=== PATIENT | female | born 1980 | race Two or more races ===

== ENCOUNTER 2018-05-07 13:26 | Emergency (ER) | payer OTHER ==
[~2018-05-07] VITALS: Ht 160 cm; Wt 83.9 kg
[2018-05-07 13:33] VITALS: BP_SYST 141
--- NOTE | 2018-05-07 13:41 | NUR ---
Patient to ER bed 8 to gown for evaluation. Side rails up. Report given to Jonnie LOZANO.
--- NOTE | 2018-05-07 13:42 | NUR ---
Pt here for c/o frontal headache, dizziness, and high diastolic BP in the 90's per pt. Pt was taking Amlodipine for htn and just started Losartan this morning. Repirations even and unlabored, denied SOB. Will continue to monitor.
--- NOTE | 2018-05-07 13:45 | NUR ---
at bedside to assess pt.
[2018-05-07] MEDS ORDERED: KETOROLAC TROMETHAMINE 30 MG VIAL IVP ONE (14:15)
[2018-05-07] MEDS ORDERED: NACL 0.9% 1,000 ML IV ONE (14:15)
[2018-05-07 15:16] LABS: CREATININE 0.84 mg/dL (0.55-1.30); POTASSIUM 3.9 mmol/L (3.5-5.1)
[2018-05-07 15:22] LABS: ALBUMIN 3.8 g/dL (3.4-4.8); TOTAL BILIRUBIN 0.4 mg/dL (0.0-1.0)
[2018-05-07 15:28] LABS: CALCIUM 9.1 mg/dL (8.4-11.0)
[2018-05-07 15:46] LABS: BASOPHILS % (AUTO) 0.3 % (0.0-2.0); EOSINOPHILS # (AUTO) 0.1 K/uL (0.0-0.4); HEMATOCRIT 41.7 % (36-48); HEMOGLOBIN 13.5 g/dL (12.0-16.0); LYMPHOCYTES % (AUTO) 34.3 % (20.5-51.5); MEAN CORPUSCULAR HEMOGLOBIN 26 pg (27-31); MEAN CORPUSCULAR HGB CONC 32 % (32-36); MEAN CORPUSCULAR VOLUME 79 fL (79.0-98.0); MONOCYTES # (AUTO) 0.4 K/uL (0.0-1.0); MONOCYTES % (AUTO) 4.9 % (1.7-9.3); NEUTROPHILS # (AUTO) 5.2 K/uL (1.8-7.7); NEUTROPHILS % (AUTO) 59.5 % (40.0-70.0); PLATELET COUNT (AUTO) 270 K/uL (130-430); RED BLOOD CELL COUNT(AUTO) 5.27 MIL/uL (4.2-6.2); RED CELL DISTRIBUTION WIDTH 12.6 % (9.0-15.0); WHITE BLOOD COUNT (AUTO) 8.8 K/uL (4.8-10.8)
--- NOTE | 2018-05-07 15:54 | NUR ---
Pt states her headache pain has gone down to 2/10. BP is 123/87, HR 77. [employer] aware.
[2018-05-07 16:17] VITALS: BP_SYST 119
--- NOTE | 2018-05-07 16:23 | NUR ---
Patient given written and verbal discharge instructions and verbalizes understanding. ER MD discussed with patient the results and treatment provided. Patient in stable condition. ID arm band removed. IV catheter removed intact and dressing applied, no active bleeding. Pt denied pain. VSS wnl. Opportunity for questions provided and answered. Medication side effect fact sheet provided.
== END 2018-05-07 16:23 | disposition home or self-care (01) ==
LOC: SED 13:26
DX: I10 Essential (primary) hypertension (principal); R42 Dizziness and giddiness; R51 Headache; E78.5 Hyperlipidemia, unspecified
CPT/HCPCS: 36415; 71045; 80053; 81002; 81025; 84484; 85025; 93005; 96361; 96374; 99284; J1885; J7030